=== PATIENT | male | born 1960 | race Caucasian/White ===

== ENCOUNTER 2021-05-26 22:31 | Emergency (ER) | payer OTHER ==
[~2021-05-26 22:31] MED LIST: ALLOPURINOL100 MG PO; ALPRAZOLAM0.25 MG PO; ASPIRIN EC81 MG PO; ATORVASTATIN CA80 MG PO; AZELASTINE137 MCG/0.; BETAPACE80 MG PO; CETIRIZINE HCL10 MG PO; COLCHICINE 0.60.6 MG PO; FLONASE 0.05% N16 GM; INCRUSE ELLI62.5 MCG INH; LEVAQUIN500 MG PO; LEVOTHYROXINE25 MCG PO; LISINOPRIL5 MG PO; LOPRESSOR 25 MG25 MG PO; METOPROLOL PO; NAPROXEN500 MG PO; NITROSTAT0.4 MG SL; NORCO 5-325 TA1 EACH PO; NORVASC 5 MG TAB5 MG PO; PRINIVIL10 MG PO; PROAIR HFA8.5 GM INH; SINGULAIR10 MG PO; TAMSULOSIN HCL0.4 MG PO
[2021-05-26 23:11] LABS: HEMOGLOBIN 15.3 gm/dl (14.0-17.5); RED BLOOD COUNT 4.9 M/UL (4.20-5.50); WHITE BLOOD COUNT 10.7 K/UL (4.5-11.0)
[2021-05-26 23:32] LABS: BUN/CREATININE RATIO 16 (0-10)
== END 2021-05-27 02:36 | disposition home or self-care (01) ==
LOC: ER1 22:31
PROVIDERS: Family Medicine
DX: T82.9XXA Unspecified complication of cardiac and vascular prosthetic device, implant and graft, initial encounter (principal)
CPT/HCPCS: 80053; 82550; 82553; 83874; 84484; 85025; 93005; 99284